=== PATIENT | male | born 1945 | race Caucasian/White ===

== ENCOUNTER → 2016-09-04 | Outpatient (CLI) | payer MEDICARE, BC, OTHER ==
--- NOTE | 2016-09-06 12:43 | SLEEPCENT ---
DATE OF PROCEDURE: 09/04/2016 ORDERED BY: Enriqueta Pedersen NP Diagnostic nocturnal polysomnography was performed due to concern for the obstructive sleep apnea syndrome. 7 hours and 4 minutes of data were reviewed. There were 268 minutes of sleep identified. Sleep latency was short at 21 minutes. Rapid eye movement (REM) was normal at 108 minutes. Sleep architecture showed fragmentation. Overall sleep efficiency 63.9%. The patient's EKG showed a sinus rhythm with an average heart rate of 58 beats per minute. EEG showed normal waveforms for awake and sleep. There were 170 respiratory events identified of 10 seconds in duration or greater for an apnea hypopnea index of 38. The events were primarily obstructive and having clearly established the presence of obstructive sleep apnea syndrome early in the night, testing was stopped shortly after 1 a.m. for the application of pressure therapy. The patient was fit with a ResMed Quattro full face mask of medium size. 4 cm of water pressure were applied to the circuit and the lights were extinguished. Throughout the remaining portion of the study pressure titration was performed. Best pressure for optimal sleep was 10 cm of water. Time at this pressure was somewhat limited, however. There was also significant limb activity identified with limb movement arousal index of 7.2. IMPRESSION: 1. Severe obstructive sleep apnea syndrome (G47.33). Apnea hypopnea index 38.1. 2. Mild periodic limb movement disorder (G47.61). Limb movement arousal index 7.2. RECOMMENDATION: Nightly use of pressure therapy at 10 cm of water is recommended as an initial intervention. Close clinical followup will be necessary and a full night re-titration may be beneficial if the patient's symptoms do not improve. Pending response to pressure therapy, interventions to reduce the frequency arousal from limb activity may also be helpful.
== END ==
LOC: M SLEEP 19:38
PROVIDERS: ATTEND Nurse Practitioner Adult Health
DX: G47.30 Sleep apnea, unspecified (principal)

== ENCOUNTER → 2017-12-19 | Outpatient (REF) | payer MEDICARE, OTHER ==
[2017-12-19 16:45] LABS: TESTOSTERONE 395 NG/DL (241-827)
== END ==
LOC: M LAB REF 13:54
DX: C61 Malignant neoplasm of prostate (principal)
CPT/HCPCS: 84403

== ENCOUNTER → 2018-07-30 | Outpatient (REF) | payer MEDICARE, OTHER | LOC: M LAB REF 12:27 | PROVIDERS: ATTEND Nurse Practitioner Adult Health | DX: C61 Malignant neoplasm of prostate (principal) ==

== ENCOUNTER → 2018-12-17 | Outpatient (REF) | payer MEDICARE, OTHER | LOC: M LAB REF 13:03 | PROVIDERS: ATTEND Nurse Practitioner Adult Health | DX: C61 Malignant neoplasm of prostate (principal) ==

== ENCOUNTER → 2019-07-31 | Outpatient (CLI) | payer MEDICARE, BC, OTHER ==
[2019-07-31 17:58] LABS: PROSTATIC SPECIFIC AG MONITOR 3.66 NG/ML (< 4.00)
== END ==
LOC: M LAB 16:51
PROVIDERS: ATTEND Urology
DX: C61 Malignant neoplasm of prostate (principal)

== ENCOUNTER → 2019-09-28 | Outpatient (CLI) | payer MEDICARE, BC, OTHER ==
[~2019-09-28] MED LIST: AMLO10TA5 PO; ASPI81TA85 PO; ATEN50TA2 PO; CHLO25TA PO; METF-877 PO; SIMV20TA22 PO; SPIR-10 PO; XARE20TA PO
== END ==
LOC: M LABSMTC 10:03
PROVIDERS: ATTEND Anesthesiology
DX: Z01.818 Encounter for other preprocedural examination (principal); Z03.818 Encounter for observation for suspected exposure to other biological agents ruled out
CPT/HCPCS: C9803; U0003

== ENCOUNTER 2019-10-01 09:47 | Day surgery (SDC) | payer MEDICARE, BC, OTHER ==
[~2019-10-01] VITALS: Ht 182.9 cm; Wt 94.3 kg
[~2019-10-01 09:47] MED LIST changes: -AMLO10TA5 PO; +AMLO1TAB25 PO; -ASPI81TA85 PO; +ASPI81TA86 PO; +NS 1,000 ML IV ONE
[2019-10-01] MEDS ORDERED: propofoL 200 MG/20 ML VIAL As Ordered ONE (11:03)
--- NOTE | 2019-10-01 11:15 | ROOR ---
Patient Name: Oliver Roca Procedure Date: 10/01/2019 10:50 AM Date of : 1945 Age: 74 Room: [facility] Gender: Male Note Status: Finalized Procedure: Colonoscopy Indications: High risk colon cancer surveillance: Personal history of colonic polyps Providers: Eliu Elizondo Jr, MD Referring MD: Estephanie Cueva NP Requesting Provider: Medicines: Propofol per Anesthesia Complications: No immediate complications. Procedure: Pre-Anesthesia Assessment: - Prior to the procedure, a History and Physical was performed, and patient medications and allergies were reviewed. The patient is competent. The risks and benefits of the procedure and the sedation options and risks were discussed with the patient. All questions were answered and informed consent was obtained. Patient identification and proposed procedure were verified by the physician and the nurse in the pre-procedure area and in the procedure room. Mental Status Examination: alert and oriented. Airway Examination: normal oropharyngeal airway and neck mobility. Respiratory Examination: clear to auscultation. CV Examination: normal. ASA Grade Assessment: II - A patient with mild systemic disease. After reviewing the risks and benefits, the patient was deemed in satisfactory condition to undergo the procedure. The anesthesia plan was to use moderate sedation / analgesia (conscious sedation). Immediately prior to administration of medications, the patient was re-assessed for adequacy to receive sedatives. The heart rate, respiratory rate, oxygen saturations, blood pressure, adequacy of pulmonary ventilation, and response to care were monitored throughout the procedure. The physical status of the patient was re-assessed after the procedure. The Colonoscope was introduced through the anus and advanced to the cecum, identified by appendiceal orifice and ileocecal valve. The colonoscopy was performed without difficulty. The patient tolerated the procedure well. The quality of the bowel preparation was good. Findings: The rectum, recto-sigmoid colon, descending colon, transverse colon, cecum, appendiceal orifice and ileocecal valve appeared normal. Multiple small and large-mouthed diverticula were found in the sigmoid colon. A medium polyp was found in the ascending colon. The polyp was semi-sessile. The polyp was removed with a hot snare. Resection and retrieval were complete. To prevent bleeding post-intervention, two hemostatic clips were successfully placed. There was no bleeding at the end of the procedure. Impression: - The rectum, recto-sigmoid colon, descending colon, transverse colon, cecum, appendiceal orifice and ileocecal valve are normal. - Diverticulosis in the sigmoid colon. - One medium polyp in the ascending colon, removed with a hot snare. Resected and retrieved. Clips were placed. Recommendation: - Repeat colonoscopy in 5 years for surveillance. Eliu Elizondo MD Eliu Elizondo Jr, MD 10/01/2019 11:15:00 AM Electronically signed by Eliu Elizondo Jr, MD Number of Addenda: 0 Note Initiated On: 10/01/2019 10:50 AM Estimated Blood Loss: Estimated blood loss: none.
[2019-10-01 11:30] VITALS: BP 147/63
== END 2019-10-01 11:44 | disposition home or self-care (01) ==
LOC: M OPP 09:47
PROVIDERS: ATTEND Surgery
DX: Z12.11 Encounter for screening for malignant neoplasm of colon (principal); Z86.010 Personal history of colon polyps; Z80.0 Family history of malignant neoplasm of digestive organs; K57.30 Diverticulosis of large intestine without perforation or abscess without bleeding; D12.2 Benign neoplasm of ascending colon; Z79.82 Long term (current) use of aspirin; Z79.84 Long term (current) use of oral hypoglycemic drugs; Z79.899 Other long term (current) drug therapy; Z86.711 Personal history of pulmonary embolism; Z85.46 Personal history of malignant neoplasm of prostate

== ENCOUNTER → 2019-12-08 | Outpatient (CLI) | payer MEDICARE, BC, OTHER ==
[~2019-12-08] MED LIST changes: -NS 1,000 ML IV ONE
[2019-12-13 04:09] LABS: PSA TOTAL 1.8 ng/mL (0.0-4.0)
== END ==
LOC: M LAB 12:40
PROVIDERS: ATTEND Urology
DX: R97.20 Elevated prostate specific antigen [PSA] (principal); C61 Malignant neoplasm of prostate

== ENCOUNTER → 2020-06-08 | Outpatient (CLI) | payer MEDICARE, BC, OTHER ==
[2020-06-08 11:42] LABS: CALCIUM LEVEL 9.3 MG/DL (8.8-10.2)
[2020-06-10 00:10] LABS: PSA % FREE 2.7 % (.); PSA FREE 0.15 ng/mL; PSA TOTAL 5.6 ng/mL (0.0-4.0)
== END ==
LOC: M LAB 10:31
PROVIDERS: ATTEND Urology
DX: C61 Malignant neoplasm of prostate (principal); C77.4 Secondary and unspecified malignant neoplasm of inguinal and lower limb lymph nodes; R31.29 Other microscopic hematuria

== ENCOUNTER → 2020-08-23 | Outpatient (CLI) | payer MEDICARE, BC, OTHER ==
[2020-08-23 13:13] LABS: BASO % 0.5 % (0.0-1.0); EOS # 0.1 10^3/uL (0.0-0.5); EOS % 1.9 % (0.0-3.0); HEMOGLOBIN 15.8 g/dl (13.5-17.5); LYMPH # 2.4 10^3/uL (1.5-5.0); LYMPH % 31.7 % (24.0-44.0); MEAN CORPUSCULAR HEMOGLOBIN 28.9 pg (27.0-33.0); MEAN CORPUSCULAR HGB CONC 32.2 g/dl (32.0-36.5); MEAN CORPUSCULAR VOLUME 89.6 fl (80.0-96.0); MONO # 0.5 10^3/uL (0.0-0.8); MONO % 6.5 % (2.0-8.0); NEUTROPHILS # 4.4 10^3/uL (1.5-8.5); PLATELET COUNT, AUTOMATED 179 10^3/uL (150-450); RED BLOOD COUNT 5.47 10^6/uL (4.30-6.10); WHITE BLOOD COUNT 7.5 10^3/uL (4.0-10.0)
[2020-08-23 13:23] LABS: BLOOD UREA NITROGEN 21 MG/DL (7-18); CALCIUM LEVEL 9.3 MG/DL (8.8-10.2); CARBON DIOXIDE LEVEL 29 MEQ/L (21-32); CHLORIDE LEVEL 108 MEQ/L (98-107); CREATININE FOR GFR 1.13 MG/DL (0.70-1.30); GLOMERULAR FILTRATION RATE > 60.0 (>42); GLUCOSE, FASTING 187 MG/DL (70-100); POTASSIUM SERUM 4.5 MEQ/L (3.5-5.1); SODIUM LEVEL 140 MEQ/L (136-145)
[2020-08-23 13:24] LABS: INR 1.15
[2020-08-23 13:25] LABS: PARTIAL THROMBOPLASTIN TIME 29.5 SECONDS (24.2-38.5)
== END ==
LOC: M LAB 12:27
PROVIDERS: ATTEND Physician Assistant
DX: Z01.818 Encounter for other preprocedural examination (principal); D69.8 Other specified hemorrhagic conditions

== ENCOUNTER → 2020-08-25 | Outpatient (CLI) | payer MEDICARE, BC, OTHER | LOC: M LABSMTC 10:00 | PROVIDERS: ATTEND Surgery Vascular Surgery | DX: Z20.822 Contact with and (suspected) exposure to COVID-19 (principal) ==

== ENCOUNTER → 2020-08-26 | Outpatient (CLI) | payer MEDICARE, BC, OTHER ==
[2020-08-27 20:07] LABS: PSA % FREE 2.7 % (.); PSA FREE 0.14 ng/mL; PSA TOTAL 5.2 ng/mL (0.0-4.0)
== END ==
LOC: M LAB 12:22
PROVIDERS: ATTEND Urology
DX: C61 Malignant neoplasm of prostate (principal)

== ENCOUNTER → 2020-09-27 | Outpatient (CLI) | payer MEDICARE, BC, OTHER ==
--- NOTE | 2020-09-27 13:51 | REP ---
INDICATION: SOLITARY PULMONARY NODULE COMPARISON: Multiple the latest 03/15/2020 TECHNIQUE: Standard helical technique without intravenous contrast administration. This causes exam limitations. FINDINGS: There is no mediastinal or hilar adenopathy. There are no pleural or pericardial effusions. Is no significant change in appearance of the imaged upper abdomen. Once again, there is a large left renal cyst partially imaged today and there is bilateral adrenal gland nodularity. There is no significant change in appearance of the imaged osseous structures. Evaluation of the lung rivas shows a pleural base nodule in the right lower lobe nancy basal segment which has increased in size now measuring 1 cm in its greatest dimension. There is a new 5 mm sized nodule in the right lung apex. There are other scattered lung field densities which are stable. There is mild cylindrical bronchiectasis which is unchanged. There is a calcified granuloma seen incidentally in the right middle lobe. IMPRESSION: 1. The right lower lobe pleural based nodule has increased in size as described above. Although the increase in size is minimal the irregularity of the nodule appears to have increased. According to the revised Fleischner society criteria this represents category 4B lesion for which PET-CT is recommended at this time. 2. Other findings as described above. <Electronically signed by Priyank Alves > 09/27/20 [id number]
== END ==
LOC: M RAD 08:51
PROVIDERS: ATTEND Nurse Practitioner Family
DX: R91.1 Solitary pulmonary nodule (principal)

== ENCOUNTER → 2020-10-18 | Outpatient (CLI) | payer MEDICARE, BC, OTHER ==
--- NOTE | 2020-10-18 16:42 | REP ---
INDICATION: DIAGNOSING LUNG NODULE 91.1. Prior history of prostate malignancy as well. COMPARISON: Comparison is made with outside prior PET images from 17 February 2019.. TECHNIQUE: Forty-six minutes following the intravenous injection of a 8.95 mCi dose of F-18 FDG, three-dimensional PET scintigraphy is acquired from the skull base to the proximal thighs. Triplanar noncontrast CT scanning is acquired through the same anatomic range for attenuation correction, and image registration with scan parameters optimized to minimize radiation exposure to the patient. PET scintigraphy and CT datasets were fused and displayed on a workstation with multiplanar and projection display capability. FINDINGS: Head and neck soft tissues are unremarkable. There is no abnormal hilar or mediastinal hypermetabolic focus. In the lung parenchyma, the previously noted area of pleural based somewhat nodular opacity appears less prominent today than it did on the recent CT scan of September 27, 2020. There is no discernible FDG accumulation within it. No abnormal pulmonary parenchymal hypermetabolic uptake is seen. In the abdomen and pelvis, normal hepatic, splenic, gastrointestinal, and genitourinary FDG accumulation is seen. No abnormal inguinal luci uptake is seen. No abnormal skeletal uptake. Incidental note is made of a large cyst in the left kidney a small cyst in the upper pole the right kidney and a stable benign left adrenal adenoma 2.1 cm in greatest diameter unchanged from prior imaging dated back to 2014. This shows slightly increased FDG uptake, maximum standard uptake value 3.59. IMPRESSION: Stable left adrenal adenoma showing minimal uptake unchanged since 2015. Otherwise negative PET scintigraphy. The pleural based right lower lobe nodular process is less prominent on the accompanying CT today than on the previous CT. Continued follow-up is advised. <Electronically signed by Miguel Angel Michael > 10/18/20 [id number]
== END ==
LOC: M PLARAD 10:13
PROVIDERS: ATTEND Nurse Practitioner Family
DX: R91.1 Solitary pulmonary nodule (principal); N28.1 Cyst of kidney, acquired; D35.02 Benign neoplasm of left adrenal gland
CPT/HCPCS: 78815; A9552

== ENCOUNTER → 2020-11-24 | Outpatient (CLI) | payer MEDICARE, BC, OTHER ==
[2020-11-24 17:21] LABS: PROSTATIC SPECIFIC AG MONITOR 4.14 NG/ML (< 4.00)
== END ==
LOC: M LAB 15:54
PROVIDERS: ATTEND Urology
DX: C61 Malignant neoplasm of prostate (principal)

== ENCOUNTER 2020-12-04 11:04 | Emergency (ER) | payer MEDICARE, BC, OTHER ==
[~2020-12-04] VITALS: Ht 182.9 cm; Wt 93.2 kg
[2020-12-04] MEDS ORDERED: MORPHINE 2 MG/ML 1ML VIAL (J2270) IV ONE ×2 (12:45→15:45)
[2020-12-04] MEDS ORDERED: ONDANSETRON 4MG/2ML VIAL IV PRN (12:45)
[2020-12-04] MEDS ORDERED: ONDANSETRON 4MG/2ML VIAL IV ONE (12:50)
--- NOTE | 2020-12-04 13:02 | REP ---
INDICATION: R knee pain/redness/swelling COMPARISON: None. TECHNIQUE: AP, lateral, bilateral oblique views of the right knee. FINDINGS: Moderate age-related degenerative changes are appreciated. Oblique and lateral views demonstrate heterotopic calcification along the anterior superior margin of the patella along with significant anterior/prepatellar soft tissue swelling and suspected suprapatellar effusion. IMPRESSION: Swelling and changes primarily involving the anterior knee and patella should be correlated with prior injury. Moderate underlying tricompartmental arthritic changes are also noted. <Electronically signed by Florentin Diane > 12/04/20 [id number]
[2020-12-04 13:20] LABS: BASO % 0.4 % (0.0-1.0); EOS # 0.1 10^3/uL (0.0-0.5); EOS % 1.2 % (0.0-3.0); HEMATOCRIT 48.2 % (42.0-52.0); HEMOGLOBIN 15.7 g/dl (13.5-17.5); LYMPH # 2.1 10^3/uL (1.5-5.0); LYMPH % 23.2 % (24.0-44.0); MEAN CORPUSCULAR HEMOGLOBIN 28.8 pg (27.0-33.0); MEAN CORPUSCULAR HGB CONC 32.6 g/dl (32.0-36.5); MEAN CORPUSCULAR VOLUME 88.3 fl (80.0-96.0); MONO # 0.5 10^3/uL (0.0-0.8); MONO % 5.7 % (2.0-8.0); NEUTROPHILS # 6.2 10^3/uL (1.5-8.5); NEUTROPHILS % 69.1 % (36.0-66.0); PLATELET COUNT, AUTOMATED 203 10^3/uL (150-450); RED BLOOD COUNT 5.46 10^6/uL (4.30-6.10)
[2020-12-04 13:30] LABS: INR 1.22; PROTHROMBIN TIME 15.8 SECONDS (12.7-14.5)
[2020-12-04 13:31] LABS: PARTIAL THROMBOPLASTIN TIME 35.2 SECONDS (25.9-37.0)
[2020-12-04 13:36] LABS: BLOOD UREA NITROGEN 16 MG/DL (7-18); CALCIUM LEVEL 8.5 MG/DL (8.8-10.2); CARBON DIOXIDE LEVEL 26 MEQ/L (21-32); CHLORIDE LEVEL 109 MEQ/L (98-107); CREATININE FOR GFR 1.22 MG/DL (0.70-1.30); GLOMERULAR FILTRATION RATE > 60.0 (>42); GLUCOSE, FASTING 144 MG/DL (70-100); POTASSIUM SERUM 4.1 MEQ/L (3.5-5.1); SODIUM LEVEL 139 MEQ/L (136-145)
[2020-12-04 13:38] LABS: ERYTHROCYTE SEDIMENTATION RATE 42 mm/hr (0-20)
--- NOTE | 2020-12-04 13:39 | REP ---
INDICATION: r/o dvt rle COMPARISON: None. TECHNIQUE: Hoffman scale and color Doppler evaluation using linear high frequency transducer. FINDINGS: Ultrasound examination of the right lower extremity deep venous structures from the common femoral vein through the calf/ankle to include the peroneal, and tibial veins demonstrates normal compressibility flow and wave patterns in response to respiration and augmentation. There is no evidence for deep venous thrombosis. Contralateral CFV is patent and normal. IMPRESSION: No evidence for deep venous thrombosis. <Electronically signed by Florentin Diane > 12/04/20 [id number]
[2020-12-04 14:07] LABS: URIC ACID 3.7 MG/DL (3.5-7.2)
[2020-12-04 14:47] LABS: SOURCE, BODY FLUID RT KNEE; SYNOVIAL FLUID COLOR YELLOW (COLORLESS)
[2020-12-04 15:04] LABS: SOURCE, BODY FLUID CRYSTALS RT KNEE
[2020-12-04 15:05] LABS: CRYSTALS, BODY FLUID NONE SEEN (NONE SEEN)
[2020-12-04] MEDS ORDERED: CEPH500C PO (18:45)
[2020-12-04] MEDS ORDERED: HYDR-3713 PO (18:45)
[2020-12-04] MEDS ORDERED: CEPHALEXIN 500 MG CAP PO ONE (18:50)
[2020-12-04] MEDS ORDERED: NORCO 5/325MG TABLET (BULK FOR ED) PO ONE (18:50)
[2020-12-04 19:38] VITALS: BP 130/77
--- NOTE | 2020-12-04 21:08 | ER ---
ER CONSULTATION DATE: 12/04/2020 TIME: 3 pm CONSULTED SERVICE: Orthopaedic surgery. CONSULTED PHYSICIAN: Luis Oneil MD HISTORY OF PRESENT ILLNESS: This is a 75-year-old male with right knee pain, suspected diagnosis of right knee cellulitis. Orthopaedic surgery was consulted to rule out a right septic knee and right gout. Patient has had pain with range of motion of the right knee with minimal axial loading pain for several days which has been exacerbated in the last 48 hours. He presented to [facility] for further evaluation and treatment. Orthopaedic surgery was consulted for the aforementioned injury. PAST MEDICAL HISTORY: Diabetes, hypertension. PAST SURGICAL HISTORY: Stenting of the femoral artery. ALLERGIES: Denies. MEDICATIONS: - metformin - atenolol - amlodipine - losartan - clopidogrel - allopurinol A more extensive list exists in the hospitalist records. SOCIAL HISTORY: Nondrinker, nonsmoker, non-IV drug user. REVIEW OF SYSTEMS: 14-point review of systems was negative unless as otherwise described in the history of present illness (HPI) above. PHYSICAL EXAMINATION: Alert and oriented to person, time, and place. Patient's right knee had a very mild hue, possible cellulitis in presentation. This is not obvious, however the patient did have a very mild knee effusion appreciated on exam. Patient had tenderness to palpation about the suprapatellar region. He was otherwise neurovascularly intact to the right lower extremity. He had 5/5 motor strength to the extensor hallucis longus (EHL), flexor hallucis longus (FHL), tibialis anterior, peroneal, and gastrocnemius musculature. Sensation intact to light touch to the deep and superficial peroneal, sural, saphenous, and tibial nerve distributions. 2+ dorsalis pedis and posterior tibial arterial pulse. Under 2 seconds capillary refill to the digits. Right knee radiographs demonstrate mild osteoarthritic changes with osteophytic lipping of the medial, lateral, and patellofemoral compartments. His joint space was restored and there were minimal radiographic evidence of subchondral cysts. LABORATORIES: White blood cell count was 9.0, ESR was 42. He had a knee aspiration which yielded 184 white blood cell count which is low. Crystals were not appreciated. Pending aerobic and anaerobic cultures. IMPRESSION: 75-year-old male with a mild suprapatellar bursitis versus osteoarthritic flare. Septic knee was ruled out and gout was ruled out. PLAN: At this point in time, given the patient's low synovial white blood cell count and the absence of crystals we can confidently rule out a septic knee or a gout flare of the right knee. He likely has either a very mild cellulitis surrounding the knee or possibly a flare of osteoarthritis. I recommend the patient receive by mouth antibiotics per the emergency room (ER) physician's recommendations for cellulitis. I recommend the patient follows up in 5-7 days for a followup check. If the patient still endorses right knee pain, I would recommend either an admission for cellulitis management versus a rheumatology consult to evaluate further rheumatologic issues regarding his right knee. I would residential substance abuse counselor the patient on return precautions for a right septic knee to include pain with ambulation and load bearing, as well as fevers and chills. Thank you for this interesting consult.
== END 2020-12-04 19:40 | disposition home or self-care (01) ==
LOC: M ED 11:04
DX: M25.561 Pain in right knee (principal); R22.41 Localized swelling, mass and lump, right lower limb; M17.11 Unilateral primary osteoarthritis, right knee; E11.9 Type 2 diabetes mellitus without complications; I10 Essential (primary) hypertension; E78.5 Hyperlipidemia, unspecified; M10.9 Gout, unspecified; Z86.718 Personal history of other venous thrombosis and embolism; Z85.46 Personal history of malignant neoplasm of prostate; Z87.891 Personal history of nicotine dependence; Z79.899 Other long term (current) drug therapy
CPT/HCPCS: 73564; 80048; 84550; 85025; 85610; 85652; 85730; 86140; 87040; 87070; 87075; 87205; 89051; 89060; 93971; 96374; 96375; 96376; 99284; J2270; J2405

== ENCOUNTER → 2020-12-28 | Outpatient (REF) | payer MEDICARE, BC, OTHER ==
[~2020-12-28] MED LIST changes: +CEPH500C PO; +HYDR-3713 PO
== END ==
LOC: M LAB REF 11:15
PROVIDERS: ATTEND Nurse Practitioner Adult Health
DX: M10.9 Gout, unspecified (principal)

== ENCOUNTER → 2021-01-30 | Outpatient (REF) | payer MEDICARE, BC, OTHER | LOC: M LAB REF 16:28 | PROVIDERS: ATTEND Nurse Practitioner Adult Health | DX: M10.9 Gout, unspecified (principal) ==

== ENCOUNTER → 2021-04-10 | Outpatient (CLI) | payer MEDICARE, BC, OTHER ==
--- NOTE | 2021-04-19 08:29 | REP ---
INDICATION: DONAVAN PULM NODULE PLEASE COMPARE TO PRIORS AT [facility] COMPARISON: 09/27/2020 TECHNIQUE: Axial noncontrast images from the thoracic inlet to the upper abdomen with coronal and sagittal reformations. This CT examination was performed using the following dose reduction techniques: Automated exposure control, adjustment of mA and/or kv according to the patient's size, and use of iterative reconstruction technique. FINDINGS: The suspicious pleural based irregularity along the anterolateral aspect of the right lower lobe appears relatively unchanged compared with prior examinations and the most recent PET-CT dated 10/18/2020 was negative for hyperactivity. The bilateral lung rivas otherwise are well aerated and demonstrate scattered chronic interstitial and emphysematous changes. There is no new acute consolidation, suspicious nodule or mass. There is no effusion or pneumothorax. The tracheobronchial tree is patent. Mediastinum demonstrates stable atherosclerotic changes to the thoracic aorta and coronary arteries without aortic aneurysm. No cardiomegaly. No pericardial effusion. No significant mediastinal or hilar adenopathy is identified. Surrounding musculoskeletal structures are unchanged. Limited upper abdomen demonstrates stable large left renal cyst and known adrenal adenomas. IMPRESSION: 1. No significant change in appearance to the pleural based density in the right lower lobe. This was negative on accompanying PET-CT dated 10/18/2020 and likely represents area of scarring. 2. No acute mediastinal or pleuroparenchymal process appreciated. <Electronically signed by Florentin Diane > 04/19/21 [id number]
== END ==
LOC: M RAD 09:41
PROVIDERS: ATTEND Nurse Practitioner Family
DX: R91.1 Solitary pulmonary nodule (principal)

== ENCOUNTER → 2021-07-31 | Outpatient (CLI) | payer MEDICARE, BC, OTHER ==
[2021-07-31 11:19] LABS: PROSTATIC SPECIFIC AG MONITOR 7.32 NG/ML (< 4.00)
== END ==
LOC: M LAB 09:11
PROVIDERS: ATTEND Urology
DX: C61 Malignant neoplasm of prostate (principal)

== ENCOUNTER → 2021-11-15 | Outpatient (CLI) | payer MEDICARE, BC, OTHER | LOC: M RAD 08:54 | PROVIDERS: ATTEND Internal Medicine Pulmonary Disease | DX: R91.1 Solitary pulmonary nodule (principal); N28.1 Cyst of kidney, acquired; R91.8 Other nonspecific abnormal finding of lung field ==

== ENCOUNTER 2022-02-12 12:16 | Emergency (ER) | payer MEDICARE, BC, OTHER ==
[~2022-02-12] VITALS: Ht 182.9 cm; Wt 97.4 kg
[2022-02-12] MEDS ORDERED: OXYC-1 PO ×2 (16:44→16:48)
[2022-02-12] MEDS ORDERED: LIDO5DIS41 TOP (16:44)
[2022-02-12] MEDS ORDERED: HYDR-3713 PO (16:57)
[2022-02-12 17:19] VITALS: BP 161/82
== END 2022-02-12 17:20 | disposition home or self-care (01) ==
LOC: M ED 12:16
DX: S20.211A Contusion of right front wall of thorax, initial encounter (principal); W01.0XXA Fall on same level from slipping, tripping and stumbling without subsequent striking against object, initial encounter; J98.11 Atelectasis; E11.9 Type 2 diabetes mellitus without complications; I10 Essential (primary) hypertension; E78.5 Hyperlipidemia, unspecified; Z86.711 Personal history of pulmonary embolism; Z79.82 Long term (current) use of aspirin; Z79.84 Long term (current) use of oral hypoglycemic drugs; Z79.899 Other long term (current) drug therapy

== ENCOUNTER → 2022-02-23 | Outpatient (REF) | payer MEDICARE, BC, OTHER ==
[~2022-02-23] MED LIST changes: +LIDO5DIS41 TOP; +OXYC-1 PO
== END ==
LOC: M LAB REF 12:00
PROVIDERS: ATTEND Nurse Practitioner Adult Health
DX: M10.9 Gout, unspecified (principal)

== ENCOUNTER → 2022-02-26 | Outpatient (CLI) | payer MEDICARE, BC, OTHER ==
[2022-02-26 14:04] LABS: PROSTATIC SPECIFIC AG MONITOR 8.65 NG/ML (< 4.00)
== END ==
LOC: M LAB 11:56
PROVIDERS: ATTEND Urology
DX: C61 Malignant neoplasm of prostate (principal)

== ENCOUNTER → 2022-03-20 | Outpatient (CLI) | payer MEDICARE, BC, OTHER | LOC: M RAD 11:10 | PROVIDERS: ATTEND Physician Assistant Medical | DX: R06.02 Shortness of breath (principal); R05.9 Cough, unspecified; R91.8 Other nonspecific abnormal finding of lung field ==

== ENCOUNTER → 2022-07-24 | Outpatient (CLI) | payer MEDICARE, BC, OTHER ==
[2022-07-24 07:44] LABS: PROSTATIC SPECIFIC AG MONITOR 5.93 NG/ML (< 4.00)
[2022-07-24 07:46] LABS: ALBUMIN 3.3 G/DL (3.2-5.2); BILIRUBIN,TOTAL 0.3 MG/DL (0.3-1.2); CALCIUM LEVEL 9.1 MG/DL (8.3-10.6); CREATININE FOR GFR 1.29 MG/DL (0.70-1.30); GLOMERULAR FILTRATION RATE 57.3 (>42); POTASSIUM SERUM 4.2 MMOL/L (3.5-5.1); TOTAL PROTEIN 6.6 G/DL (5.7-8.2)
== END ==
LOC: M LAB 07-23 16:15
PROVIDERS: ATTEND Urology
DX: C61 Malignant neoplasm of prostate (principal)

== ENCOUNTER → 2022-07-30 | Outpatient (CLI) | payer MEDICARE, BC, OTHER | LOC: M PLAIMG 12:18 | PROVIDERS: ATTEND Internal Medicine Pulmonary Disease | DX: R91.8 Other nonspecific abnormal finding of lung field (principal); I70.0 Atherosclerosis of aorta; I25.10 Atherosclerotic heart disease of native coronary artery without angina pectoris; J47.9 Bronchiectasis, uncomplicated; J43.9 Emphysema, unspecified ==

== ENCOUNTER → 2023-01-16 | Outpatient (CLI) | payer MEDICARE, BC, OTHER ==
[2023-01-16 12:38] LABS: CREATININE FOR GFR 1.27 MG/DL (0.70-1.30); GLOMERULAR FILTRATION RATE 58.4 (>42)
== END ==
LOC: M LAB 11:23
DX: I70.201 Unspecified atherosclerosis of native arteries of extremities, right leg (principal)

== ENCOUNTER → 2023-01-23 | Outpatient (CLI) | payer MEDICARE, BC, OTHER ==
[~2023-01-23] MED LIST changes: +ISOVUE-370 76% 100ML VIAL As Ordered ONE
== END ==
LOC: M RAD 09:55
PROVIDERS: ATTEND Surgery Vascular Surgery
DX: I70.203 Unspecified atherosclerosis of native arteries of extremities, bilateral legs (principal); Z95.820 Peripheral vascular angioplasty status with implants and grafts; N28.1 Cyst of kidney, acquired; I70.0 Atherosclerosis of aorta
CPT/HCPCS: 75635; Q9967

== ENCOUNTER → 2023-01-23 | Outpatient (CLI) | payer MEDICARE, BC, OTHER ==
[~2023-01-23] MED LIST changes: -ISOVUE-370 76% 100ML VIAL As Ordered ONE
== END ==
LOC: M LAB 10:00
PROVIDERS: ATTEND Urology
DX: C61 Malignant neoplasm of prostate (principal)

== ENCOUNTER → 2023-08-09 | Outpatient (CLI) | payer MEDICARE, BC ==
[2023-08-09 08:07] LABS: PROSTATIC SPECIFIC AG MONITOR 8.04 NG/ML (< 4.00)
== END ==
LOC: M LAB 07:08
PROVIDERS: ATTEND Urology
DX: C61 Malignant neoplasm of prostate (principal)

== ENCOUNTER → 2023-08-26 | Outpatient (CLI) | payer MEDICARE, BC | LOC: M PLAIMG 07:47 | PROVIDERS: ATTEND Internal Medicine Pulmonary Disease | DX: R91.1 Solitary pulmonary nodule (principal); J84.10 Pulmonary fibrosis, unspecified; R91.8 Other nonspecific abnormal finding of lung field ==

== ENCOUNTER → 2023-12-06 | Outpatient (CLI) | payer MEDICARE, BC ==
[2023-12-06 08:22] LABS: PROSTATIC SPECIFIC AG MONITOR 8.36 NG/ML (< 4.00)
== END ==
LOC: M LAB 07:19
PROVIDERS: ATTEND Urology
DX: C61 Malignant neoplasm of prostate (principal)

== ENCOUNTER → 2023-12-10 | Outpatient (REF) | payer MEDICARE, OTHER | LOC: M SFHCDERM 12:36 | PROVIDERS: ATTEND Nurse Practitioner Family | DX: L82.0 Inflamed seborrheic keratosis (principal) ==

== ENCOUNTER → 2024-02-28 | Outpatient (CLI) | payer MEDICARE, BC | LOC: M RAD 09:48 | PROVIDERS: ATTEND Internal Medicine Pulmonary Disease | DX: R91.8 Other nonspecific abnormal finding of lung field (principal); I25.10 Atherosclerotic heart disease of native coronary artery without angina pectoris; J98.11 Atelectasis; J84.10 Pulmonary fibrosis, unspecified ==

== ENCOUNTER 2024-06-17 13:15 | Emergency (ER) | payer MEDICARE, BC ==
[~2024-06-17] VITALS: Ht 180.3 cm; Wt 94.7 kg
[2024-06-17 14:52] LABS: HEMATOCRIT 26.9 % (42.0-52.0); HEMOGLOBIN 8.4 g/dl (13.5-17.5); MEAN CORPUSCULAR HEMOGLOBIN 30.1 pg (27.0-33.0); MEAN CORPUSCULAR HGB CONC 31.2 g/dl (32.0-36.5); MEAN CORPUSCULAR VOLUME 96.4 fl (80.0-96.0); RED BLOOD COUNT 2.79 10^6/uL (4.30-6.10); WHITE BLOOD COUNT 6.5 10^3/uL (4.0-10.0)
[2024-06-17 15:20] LABS: ALBUMIN 2.6 G/DL (3.2-5.2); BILIRUBIN,DIRECT 0.4 MG/DL (<0.4); BILIRUBIN,TOTAL 1.4 MG/DL (0.3-1.2); CALCIUM LEVEL 8.2 MG/DL (8.3-10.6); CREATININE FOR GFR 1.83 MG/DL (0.70-1.30); GLOMERULAR FILTRATION RATE 38.1 (>35); POTASSIUM SERUM 4.3 MMOL/L (3.5-5.1); TOTAL PROTEIN 6.3 G/DL (5.7-8.2)
[2024-06-17 15:23] LABS: PLATELET COUNT, AUTOMATED 52 10^3/uL (150-450)
[2024-06-17 15:26] LABS: ATYPICAL LYMPH 4 % (0-5); EOSINOPHILS 1 % (0-3); LYMPHOCYTES 21 % (16-44); MONOCYTES 4 % (0-5); NEUTROPHILS 69 % (28-66); PLATELET ESTIMATE DECREASED (NORMAL)
[2024-06-17 15:27] LABS: ANISOCYTOSIS 2+; STOMATOCYTES 1+
[2024-06-17 15:28] LABS: POLYCHROMASIA 1+
[2024-06-17 15:29] LABS: MICROCYTOSIS 3+
[2024-06-17 21:01] VITALS: BP 119/56; TEMP 97.8; O2SAT 99
[2024-06-17 21:15] VITALS: BP 129/73; TEMP 97.3; O2SAT 97
[2024-06-17 22:00] VITALS: BP 148/67; TEMP 97.2; O2SAT 96
[2024-06-17 23:00] VITALS: BP 152/67; TEMP 97.8; O2SAT 98
[2024-06-17 23:02] VITALS: BP 132/64; TEMP 97.8; O2SAT 98
== END 2024-06-17 23:09 | disposition home or self-care (01) ==
LOC: M ED 13:15
DX: D64.9 Anemia, unspecified (principal); R53.83 Other fatigue; R06.00 Dyspnea, unspecified; I10 Essential (primary) hypertension; E78.5 Hyperlipidemia, unspecified; E11.9 Type 2 diabetes mellitus without complications; Z85.46 Personal history of malignant neoplasm of prostate; Z86.711 Personal history of pulmonary embolism; Z79.01 Long term (current) use of anticoagulants; Z79.899 Other long term (current) drug therapy
CPT/HCPCS: 36430; 71045; 80048; 80076; 85025; 85049; 85055; 86850; 86900; 86901; 86920; 87486; 87581; 87633; 87798; 93005; 99285; P9016

== ENCOUNTER → 2024-06-22 | Outpatient (CLI) | payer MEDICARE, BC ==
[2024-06-22 12:45] LABS: BASO % 0.2 % (0.0-1.0); EOS % 0.5 % (0.0-3.0); HEMATOCRIT 29.6 % (42.0-52.0); LYMPH # 2.6 10^3/uL (1.5-5.0); LYMPH % 30.8 % (24.0-44.0); MEAN CORPUSCULAR HEMOGLOBIN 29.8 pg (27.0-33.0); MEAN CORPUSCULAR HGB CONC 30.4 g/dl (32.0-36.5); MONO # 0.6 10^3/uL (0.0-0.8); MONO % 7.4 % (2.0-8.0); NEUTROPHILS # 5.1 10^3/uL (1.5-8.5); NEUTROPHILS % 60.6 % (36.0-66.0); PLATELET COUNT, AUTOMATED 51 10^3/uL (150-450); RED BLOOD COUNT 3.02 10^6/uL (4.30-6.10); WHITE BLOOD COUNT 8.4 10^3/uL (4.0-10.0)
[2024-06-22 13:12] LABS: LDH LACTATE DEHYDROGENASE 217 U/L (120-246)
[2024-06-22 13:13] LABS: ALBUMIN 2.7 G/DL (3.2-5.2); ALKALINE PHOSPHATASE 66 U/L (40-129); ALT/SGPT < 9 U/L (7.0-40); AST/SGOT < 8 U/L (<34); BILIRUBIN,TOTAL 1.2 MG/DL (0.3-1.2); BLOOD UREA NITROGEN 57 MG/DL (9-23); CALCIUM LEVEL 8.6 MG/DL (8.3-10.6); CARBON DIOXIDE LEVEL 20 MMOL/L (20-31); CHLORIDE LEVEL 115 MMOL/L (98-107); CREATININE FOR GFR 1.65 MG/DL (0.70-1.30); GLOMERULAR FILTRATION RATE 42.9 (>35); GLUCOSE, FASTING 161 MG/DL (74-106); POTASSIUM SERUM 4.7 MMOL/L (3.5-5.1); SODIUM LEVEL 143 MMOL/L (136-145); TOTAL PROTEIN 6.3 G/DL (5.7-8.2)
== END ==
LOC: M LAB 12:11
PROVIDERS: ATTEND Physician Assistant
DX: C83.30 Diffuse large B-cell lymphoma, unspecified site (principal)

== ENCOUNTER → 2024-06-25 | Outpatient (CLI) | payer MEDICARE, BC ==
[~2024-06-25] MED LIST changes: +ADVA1AER9 INH; +ASPI81TA26 PO; +INDA1.253 PO; +METF500T13 PO
[2024-06-25 13:02] LABS: EOS % 0.1 % (0.0-3.0); HEMATOCRIT 25.9 % (42.0-52.0); HEMOGLOBIN 8.2 g/dl (13.5-17.5); LYMPH # 0.8 10^3/uL (1.5-5.0); LYMPH % 11.7 % (24.0-44.0); MEAN CORPUSCULAR HEMOGLOBIN 31.3 pg (27.0-33.0); MEAN CORPUSCULAR HGB CONC 31.7 g/dl (32.0-36.5); MEAN CORPUSCULAR VOLUME 98.9 fl (80.0-96.0); MONO # 0.4 10^3/uL (0.0-0.8); MONO % 5.5 % (2.0-8.0); NEUTROPHILS # 5.5 10^3/uL (1.5-8.5); NEUTROPHILS % 82.1 % (36.0-66.0); RED BLOOD COUNT 2.62 10^6/uL (4.30-6.10); WHITE BLOOD COUNT 6.7 10^3/uL (4.0-10.0)
[2024-06-25 13:04] LABS: PLATELET COUNT, AUTOMATED 46 10^3/uL (150-450)
[2024-06-25 13:22] LABS: URIC ACID 10.6 MG/DL (3.7-9.2)
[2024-06-25 13:25] LABS: ALBUMIN 2.5 G/DL (3.2-5.2); BILIRUBIN,TOTAL 1.1 MG/DL (0.3-1.2); CALCIUM LEVEL 8.4 MG/DL (8.3-10.6); CREATININE FOR GFR 1.68 MG/DL (0.70-1.30); GLOMERULAR FILTRATION RATE 42.1 (>35); PHOSPHORUS LEVEL 6.5 MG/DL (2.4-5.1); POTASSIUM SERUM 5.7 MMOL/L (3.5-5.1)
== END ==
LOC: M LAB 12:11
PROVIDERS: ATTEND Physician Assistant
DX: C83.30 Diffuse large B-cell lymphoma, unspecified site (principal)

== ENCOUNTER → 2024-06-26 | Outpatient (CLI) | payer MEDICARE, BC ==
[~2024-06-26] MED LIST changes: -ADVA1AER9 INH; -ASPI81TA26 PO; -INDA1.253 PO; -METF500T13 PO
[2024-06-26 12:35] LABS: BASO % 0.1 % (0.0-1.0); EOS % 0.3 % (0.0-3.0); HEMATOCRIT 25.9 % (42.0-52.0); HEMOGLOBIN 8.1 g/dl (13.5-17.5); LYMPH # 0.8 10^3/uL (1.5-5.0); LYMPH % 6.5 % (24.0-44.0); MEAN CORPUSCULAR HEMOGLOBIN 31.2 pg (27.0-33.0); MEAN CORPUSCULAR HGB CONC 31.3 g/dl (32.0-36.5); MEAN CORPUSCULAR VOLUME 99.6 fl (80.0-96.0); MONO # 0.4 10^3/uL (0.0-0.8); MONO % 3.1 % (2.0-8.0); NEUTROPHILS # 10.3 10^3/uL (1.5-8.5); NEUTROPHILS % 85.2 % (36.0-66.0); WHITE BLOOD COUNT 12.1 10^3/uL (4.0-10.0)
[2024-06-26 12:37] LABS: PLATELET COUNT, AUTOMATED 46 10^3/uL (150-450)
[2024-06-26 12:46] LABS: URIC ACID 10.5 MG/DL (3.7-9.2)
[2024-06-26 12:52] LABS: ALBUMIN 2.5 G/DL (3.2-5.2); BILIRUBIN,TOTAL 1.1 MG/DL (0.3-1.2); CALCIUM LEVEL 8.2 MG/DL (8.3-10.6); CREATININE FOR GFR 1.66 MG/DL (0.70-1.30); GLOMERULAR FILTRATION RATE 42.6 (>35); PHOSPHORUS LEVEL 5.6 MG/DL (2.4-5.1); POTASSIUM SERUM 4.5 MMOL/L (3.5-5.1); TOTAL PROTEIN 5.8 G/DL (5.7-8.2)
== END ==
LOC: M LAB 11:49
PROVIDERS: ATTEND Physician Assistant
DX: C83.30 Diffuse large B-cell lymphoma, unspecified site (principal)

== ENCOUNTER → 2024-07-02 | Outpatient (CLI) | payer MEDICARE, BC ==
[~2024-07-02] MED LIST changes: +ADVA1AER9 INH; +ASPI81TA26 PO; +INDA1.253 PO; +METF500T13 PO
[2024-07-02 15:32] LABS: BASO % 0.5 % (0.0-1.0); EOS # 0.1 10^3/uL (0.0-0.5); EOS % 6.7 % (0.0-3.0); HEMATOCRIT 21.7 % (42.0-52.0); HEMOGLOBIN 7.2 g/dl (13.5-17.5); LYMPH # 0.9 10^3/uL (1.5-5.0); LYMPH % 46.9 % (24.0-44.0); MEAN CORPUSCULAR HGB CONC 33.2 g/dl (32.0-36.5); MEAN CORPUSCULAR VOLUME 96.4 fl (80.0-96.0); MONO # 0.1 10^3/uL (0.0-0.8); MONO % 7.2 % (2.0-8.0); NEUTROPHILS % 38.2 % (36.0-66.0); RED BLOOD COUNT 2.25 10^6/uL (4.30-6.10); WHITE BLOOD COUNT 1.9 10^3/uL (4.0-10.0)
[2024-07-02 15:35] LABS: NEUTROPHILS # 0.7 10^3/uL (1.5-8.5); PLATELET COUNT, AUTOMATED 75 10^3/uL (150-450)
[2024-07-02 15:53] LABS: URIC ACID 7.4 MG/DL (3.7-9.2)
[2024-07-02 15:56] LABS: ALBUMIN 2.6 G/DL (3.2-5.2); BILIRUBIN,TOTAL 1.2 MG/DL (0.3-1.2); CALCIUM LEVEL 8.1 MG/DL (8.3-10.6); CREATININE FOR GFR 1.36 MG/DL (0.70-1.30); GLOMERULAR FILTRATION RATE 53.7 (>35); PHOSPHORUS LEVEL 1.8 MG/DL (2.4-5.1); POTASSIUM SERUM 4.6 MMOL/L (3.5-5.1); TOTAL PROTEIN 5.8 G/DL (5.7-8.2)
== END ==
LOC: M LAB 12:05
PROVIDERS: ATTEND Physician Assistant
DX: C83.30 Diffuse large B-cell lymphoma, unspecified site (principal)

== ENCOUNTER 2024-07-03 11:08 | Observation (INO) | payer MEDICARE, BC ==
[2024-07-03] VITALS (9 sets, daily range): BP systolic 110–139; BP diastolic 51–60; TEMP 98.7–99.6; O2SAT 98–100
[~2024-07-03] VITALS: Ht 180.3 cm; Wt 86.4 kg
[2024-07-03] MEDS: DOCUSATE SODIUM 100MG CAPSULE PO SCH (09:00)
[~2024-07-03 11:08] MED LIST changes: -ADVA1AER9 INH; -ASPI81TA26 PO; -INDA1.253 PO; -METF500T13 PO
[2024-07-03 12:22] LABS: MEAN CORPUSCULAR HEMOGLOBIN 32.1 pg (27.0-33.0); MEAN CORPUSCULAR HGB CONC 33.8 g/dl (32.0-36.5); MEAN CORPUSCULAR VOLUME 94.8 fl (80.0-96.0); RED BLOOD COUNT 2.12 10^6/uL (4.30-6.10); WHITE BLOOD COUNT 3.1 10^3/uL (4.0-10.0)
[2024-07-03 12:25] LABS: HEMATOCRIT 20.1 % (42.0-52.0); HEMOGLOBIN 6.8 g/dl (13.5-17.5); PLATELET COUNT, AUTOMATED 95 10^3/uL (150-450)
[2024-07-03 12:50] LABS: CALCIUM LEVEL 7.7 MG/DL (8.3-10.6); CREATININE FOR GFR 1.38 MG/DL (0.70-1.30); GLOMERULAR FILTRATION RATE 52.8 (>35); POTASSIUM SERUM 3.4 MMOL/L (3.5-5.1)
[2024-07-03 12:59] LABS: BASOPHILS 1 % (0-1); EOSINOPHILS 6 % (0-3); LYMPHOCYTES 39 % (16-44); MONOCYTES 1 % (0-5); NEUTROPHILS 40 % (28-66)
[2024-07-03 13:00] LABS: PLATELET ESTIMATE MARKED DECREASE (NORMAL)
[2024-07-03 13:02] LABS: ANISOCYTOSIS 2+; MICROCYTOSIS 1+
[2024-07-03 13:03] LABS: POLYCHROMASIA 1+
[2024-07-03] MEDS ORDERED: ACETAMINOPHEN 325 MG TAB PO PRN (13:25)
[2024-07-03] MEDS ORDERED: MOM 30ML SUSPENSION UDC PO PRN (13:25)
[2024-07-03] MEDS ORDERED: GLUCAGON INJ 1MG VIAL SC PRN (14:30)
[2024-07-03] MEDS ORDERED: DEXTROSE 50% 50ML SYRINGE IV PRN (14:30)
[2024-07-03] MEDS ORDERED: GLUCOSE 4 GM CHEW PO PRN (14:30)
[2024-07-03] MEDS ORDERED: ASPI81TA26 PO (14:52)
[2024-07-03] MEDS ORDERED: METF500T13 PO (14:52)
[2024-07-03] MEDS ORDERED: INDA1.253 PO (14:54)
[2024-07-03] MEDS ORDERED: ADVA1AER9 INH (14:54)
[2024-07-03] MEDS ORDERED: HOME MED LIST COMPLETE! XX SCH (14:55)
[2024-07-03 15:04] LABS: EOS # 0.1 10^3/uL (0.0-0.5); EOS % 4.5 % (0.0-3.0); LYMPH # 0.7 10^3/uL (1.5-5.0); LYMPH % 23.4 % (24.0-44.0); MONO # 0.3 10^3/uL (0.0-0.8); NEUTROPHILS # 1.7 10^3/uL (1.5-8.5); NEUTROPHILS % 53.2 % (36.0-66.0)
[2024-07-03] MEDS: INSULIN LISPRO (NovoLOG) PER UNIT SC SCH (17:30)
[2024-07-03] MEDS ORDERED: INSULIN LISPRO (NovoLOG) PER UNIT SC SCH (21:00)
== END 2024-07-03 20:35 | disposition home or self-care (01) ==
LOC: M ED 11:08 → M ED INP 11:09
PROVIDERS: ADMIT Student in an Organized Health Care Education/Training Program; ATTEND Student in an Organized Health Care Education/Training Program
DX: D64.81 Anemia due to antineoplastic chemotherapy (principal); R53.1 Weakness; D72.825 Bandemia; I44.1 Atrioventricular block, second degree; C83.30 Diffuse large B-cell lymphoma, unspecified site; E11.9 Type 2 diabetes mellitus without complications; Z86.711 Personal history of pulmonary embolism; E78.5 Hyperlipidemia, unspecified; I73.9 Peripheral vascular disease, unspecified; Z79.82 Long term (current) use of aspirin; Z79.4 Long term (current) use of insulin; Z79.899 Other long term (current) drug therapy
CPT/HCPCS: 36415; 36430; 80048; 85025; 86850; 86900; 86901; 86920; 87040; 93005; 99285; G0378; P9016

== ENCOUNTER 2024-07-08 11:58 | Inpatient (IN) | payer MEDICARE, BC ==
[~2024-07-08] VITALS: Ht 180.3 cm; Wt 88.6 kg
[~2024-07-08 11:58] MED LIST changes: +ADVA1AER9 INH; +ASPI81TA26 PO; +INDA1.253 PO; +METF500T13 PO
[2024-07-08 12:53] LABS: BASO % 0.3 % (0.0-1.0); EOS # 0.1 10^3/uL (0.0-0.5); EOS % 2.1 % (0.0-3.0); HEMATOCRIT 29.2 % (42.0-52.0); HEMOGLOBIN 9.7 g/dl (13.5-17.5); LYMPH # 0.5 10^3/uL (1.5-5.0); LYMPH % 9.2 % (24.0-44.0); MEAN CORPUSCULAR HGB CONC 33.2 g/dl (32.0-36.5); MEAN CORPUSCULAR VOLUME 93.3 fl (80.0-96.0); MONO # 0.4 10^3/uL (0.0-0.8); MONO % 6.3 % (2.0-8.0); NEUTROPHILS # 4.6 10^3/uL (1.5-8.5); NEUTROPHILS % 80.7 % (36.0-66.0); PLATELET COUNT, AUTOMATED 120 10^3/uL (150-450); RED BLOOD COUNT 3.13 10^6/uL (4.30-6.10); WHITE BLOOD COUNT 5.7 10^3/uL (4.0-10.0)
[2024-07-08 13:11] LABS: ALBUMIN 2.2 G/DL (3.2-5.2); BILIRUBIN,DIRECT 0.4 MG/DL (<0.4); CREATININE FOR GFR 1.26 MG/DL (0.70-1.30); GLOMERULAR FILTRATION RATE 58.6 (>35); POTASSIUM SERUM 3.7 MMOL/L (3.5-5.1)
[2024-07-08 13:13] LABS: THYROID STIMULATING HORMONE 2.357 uIU/ML (0.55-4.78)
[2024-07-08 13:22] LABS: INR 1.06; PROTHROMBIN TIME 14.1 SECONDS (12.5-14.5)
[2024-07-08] MEDS: NS (Normal Saline) 0.9% 1,000 ML IV ONE ×2 (14:26→17:05)
[2024-07-08 15:20] LABS: IONIZED CALCIUM 3.9 MG/DL (4.5-5.3)
[2024-07-08 15:48] LABS: MAGNESIUM LEVEL 1.9 MG/DL (1.8-2.4)
[2024-07-08] MEDS ORDERED: DOXY-442 PO (19:03)
[2024-07-08] MEDS ORDERED: HOME MED LIST COMPLETE! XX SCH (20:20)
[2024-07-08] MEDS: ACETAMINOPHEN *IV* 1,000 MG in IV 1 EA IV ONE (20:42)
[2024-07-08] MEDS: cefTRIAXone SOD 1 GM in DEXTROSE 5% (D5W) ADV/MINI-BAG 50 ML IV ONE (20:42)
[2024-07-08] MEDS: INSULIN LISPRO (NovoLOG) PER UNIT SC SCH (21:00)
[2024-07-08] MEDS ORDERED: GLUCOSE 4 GM CHEW PO PRN (21:45)
[2024-07-08] MEDS ORDERED: DEXTROSE 50% 50ML SYRINGE IV PRN (21:45)
[2024-07-08] MEDS ORDERED: GLUCAGON INJ 1MG VIAL SC PRN (21:45)
[2024-07-08 22:16] LABS: PHOSPHORUS LEVEL 1.3 MG/DL (2.4-5.1)
[2024-07-08 22:19] LABS: TOTAL 25(OH) VITAMIN D 12.7 NG/ML (20.0-100.0)
[2024-07-08] MEDS: CALCIUM CARBONATE 500 MG CHEW U/D PO ONE (22:31)
[2024-07-08] MEDS: SIMVASTATIN 20 MG TAB PO SCH (22:31)
[2024-07-08] MEDS: NS (Normal Saline) 0.9% 1,000 ML IV SCH (22:31)
[2024-07-08] MEDS: ASPIRIN 81MG ENTERIC TABLET PO SCH (22:31)
[2024-07-08 22:32] LABS: IRON (FE) 15 UG/DL (65-175); PERCENT SATURATION 8.4 % (19.7-50.0); TOTAL IRON BINDING CAPACITY 179 UG/DL (250-425)
[2024-07-08 22:34] LABS: FERRITIN 1256.6 NG/ML (10.5-307.3)
[2024-07-08 22:35] LABS: FOLATE 7.26 NG/ML (>5.4); VITAMIN B12 LEVEL > 2000 PG/ML (211-911)
[2024-07-09 00:13] VITALS: BP 130/64; TEMP 97.5; O2SAT 98
[2024-07-09] MEDS: ACETAMINOPHEN 325 MG TAB PO PRN (00:28)
[2024-07-09 05:01] VITALS: BP 148/57; TEMP 97.5; O2SAT 98
[2024-07-09 06:48] LABS: HEMATOCRIT 23.6 % (42.0-52.0); HEMOGLOBIN 7.7 g/dl (13.5-17.5); MEAN CORPUSCULAR HEMOGLOBIN 31.2 pg (27.0-33.0); MEAN CORPUSCULAR HGB CONC 32.6 g/dl (32.0-36.5); MEAN CORPUSCULAR VOLUME 95.5 fl (80.0-96.0); PLATELET COUNT, AUTOMATED 107 10^3/uL (150-450); RED BLOOD COUNT 2.47 10^6/uL (4.30-6.10); WHITE BLOOD COUNT 4.6 10^3/uL (4.0-10.0)
[2024-07-09 07:04] LABS: ALBUMIN 1.8 G/DL (3.2-5.2); ALKALINE PHOSPHATASE 71 U/L (40-129); ALT/SGPT 14 U/L (7.0-40); AST/SGOT 9 U/L (<34); BILIRUBIN,TOTAL 0.5 MG/DL (0.3-1.2); BLOOD UREA NITROGEN 11 MG/DL (9-23); CALCIUM LEVEL 6.6 MG/DL (8.3-10.6); CARBON DIOXIDE LEVEL 22 MMOL/L (20-31); CHLORIDE LEVEL 113 MMOL/L (98-107); CREATININE FOR GFR 1.16 MG/DL (0.70-1.30); GLOMERULAR FILTRATION RATE > 60.0 (>35); GLUCOSE, FASTING 105 MG/DL (74-106); POTASSIUM SERUM 3.4 MMOL/L (3.5-5.1); SODIUM LEVEL 142 MMOL/L (136-145); TOTAL PROTEIN 4.9 G/DL (5.7-8.2)
[2024-07-09] MEDS: ADVAIR HFA 115/21MCG INHALER INH SCH (07:14)
[2024-07-09] MEDS: INSULIN LISPRO (NovoLOG) PER UNIT SC SCH (08:44)
[2024-07-09] MEDS: POTASSIUM CHLORIDE 10MEQ SR TABLET PO ONE (11:03)
[2024-07-09] MEDS ORDERED: MORPHINE 2 MG/ML 1ML VIAL IV PRN (11:25)
[2024-07-09 12:00] VITALS: BP 145/57; TEMP 97.7; O2SAT 97
[2024-07-09 12:00] LABS: C REACTIVE PROTEIN QUANTITATIV 9.18 MG/DL (<1.0)
[2024-07-09] MEDS: VITAMIN D 1,000 INTERNATIONAL UNITS TABLET PO SCH (12:09)
[2024-07-09] MEDS: PIPERACILLIN/TAZOBACTAM SOD 3.375 GM in DEXTROSE 5% (D5W) ADV/MINI-BAG 50 ML IV SCH (12:10)
[2024-07-09 12:12] LABS: PROCALCITONIN 0.34 ng/ml
[2024-07-09] MEDS: PERCOCET 5MG/325MG TAB PO PRN (12:58)
[2024-07-09] MEDS: HEPARIN SOD (PORCINE) 5000UNITS/ML 1ML VIAL/SYRINGE SQ SCH (14:00)
[2024-07-09] MEDS: POTASSIUM PHOSPHATE INJ 20 MMOL in D5W 250 ML IV ONE (14:17)
[2024-07-09] MEDS: LIDOCAINE W/EPINEPHRINE 1% 20ML VIAL SC ONE (15:10)
[2024-07-09 19:49] VITALS: BP 145/59; TEMP 97.9; O2SAT 97
[2024-07-09] MEDS ORDERED: INDAPAMIDE 1.25MG TABLET PO SCH (21:00)
[2024-07-09] MEDS ORDERED: RIVAROXABAN 20MG TAB (XARELTO) PO SCH (23:00)
[2024-07-10 04:00] VITALS: BP 162/71; TEMP 97.5; O2SAT 98
[2024-07-10 06:02] LABS: HEMOGLOBIN 8.5 g/dl (13.5-17.5); MEAN CORPUSCULAR HEMOGLOBIN 31.1 pg (27.0-33.0); MEAN CORPUSCULAR HGB CONC 32.7 g/dl (32.0-36.5); MEAN CORPUSCULAR VOLUME 95.2 fl (80.0-96.0); PLATELET COUNT, AUTOMATED 130 10^3/uL (150-450); RED BLOOD COUNT 2.73 10^6/uL (4.30-6.10); WHITE BLOOD COUNT 5.2 10^3/uL (4.0-10.0)
[2024-07-10 06:31] LABS: C REACTIVE PROTEIN QUANTITATIV 9.46 MG/DL (<1.0)
[2024-07-10 06:41] LABS: ALBUMIN 1.8 G/DL (3.2-5.2); ALKALINE PHOSPHATASE 79 U/L (40-129); ALT/SGPT 20 U/L (7.0-40); AST/SGOT 17 U/L (<34); BILIRUBIN,TOTAL 0.4 MG/DL (0.3-1.2); BLOOD UREA NITROGEN 10 MG/DL (9-23); CALCIUM LEVEL 6.5 MG/DL (8.3-10.6); CARBON DIOXIDE LEVEL 23 MMOL/L (20-31); CHLORIDE LEVEL 109 MMOL/L (98-107); CREATININE FOR GFR 1.15 MG/DL (0.70-1.30); GLOMERULAR FILTRATION RATE > 60.0 (>35); GLUCOSE, FASTING 129 MG/DL (74-106); PHOSPHORUS LEVEL 1.9 MG/DL (2.4-5.1); POTASSIUM SERUM 3.6 MMOL/L (3.5-5.1); SODIUM LEVEL 142 MMOL/L (136-145)
[2024-07-10] MEDS: VITAMIN D 50,000 UNITS CAPSULE (ERGOCALCIFEROL 1.25MG) PO SCH (09:26)
[2024-07-10 10:27] VITALS: BP 149/66; TEMP 97.9; O2SAT 97
[2024-07-10] MEDS: RIVAROXABAN 20MG TAB (XARELTO) PO SCH (11:53)
[2024-07-10] MEDS: POTASSIUM PHOSPHATE INJ 20 MMOL in D5W 250 ML IV ONE (14:01)
[2024-07-10 20:33] VITALS: BP 125/75; TEMP 97.7; O2SAT 98
[2024-07-11 05:43] LABS: HEMOGLOBIN 8.9 g/dl (13.5-17.5); MEAN CORPUSCULAR HEMOGLOBIN 31.4 pg (27.0-33.0); MEAN CORPUSCULAR VOLUME 95.4 fl (80.0-96.0); PLATELET COUNT, AUTOMATED 145 10^3/uL (150-450); RED BLOOD COUNT 2.83 10^6/uL (4.30-6.10); WHITE BLOOD COUNT 4.5 10^3/uL (4.0-10.0)
[2024-07-11 06:17] LABS: C REACTIVE PROTEIN QUANTITATIV 6.13 MG/DL (<1.0)
[2024-07-11 06:26] LABS: ALBUMIN 1.9 G/DL (3.2-5.2); ALKALINE PHOSPHATASE 96 U/L (40-129); ALT/SGPT 25 U/L (7.0-40); AST/SGOT 22 U/L (<34); BILIRUBIN,TOTAL 0.5 MG/DL (0.3-1.2); BLOOD UREA NITROGEN 9 MG/DL (9-23); CALCIUM LEVEL 6.8 MG/DL (8.3-10.6); CARBON DIOXIDE LEVEL 22 MMOL/L (20-31); CHLORIDE LEVEL 110 MMOL/L (98-107); CREATININE FOR GFR 1.15 MG/DL (0.70-1.30); GLOMERULAR FILTRATION RATE > 60.0 (>35); GLUCOSE, FASTING 131 MG/DL (74-106); PHOSPHORUS LEVEL 2.5 MG/DL (2.4-5.1); POTASSIUM SERUM 3.6 MMOL/L (3.5-5.1); SODIUM LEVEL 142 MMOL/L (136-145); TOTAL PROTEIN 5.3 G/DL (5.7-8.2)
[2024-07-11] MEDS ORDERED: AMOX875T2 PO (09:31)
[2024-07-11] MEDS ORDERED: DOXY-440 PO (09:31)
[2024-07-11] MEDS ORDERED: ERGO500029 PO (12:54)
== END 2024-07-11 12:30 | disposition home health service (06) | DRG 603 ==
LOC: EDBD 11:58 → M ED 11:58 → M ED INP 21:40 → M MS5PR 07-09 00:08
PROVIDERS: ADMIT Family Medicine; ATTEND Internal Medicine
PROC: 0Y910ZZ Drainage of Left Buttock, Open Approach (ICD-10-PCS; principal; 2024-07-09)
DX: L02.31 Cutaneous abscess of buttock (principal); C83.30 Diffuse large B-cell lymphoma, unspecified site; I10 Essential (primary) hypertension; E78.5 Hyperlipidemia, unspecified; E83.39 Other disorders of phosphorus metabolism; E87.6 Hypokalemia; I95.1 Orthostatic hypotension; D64.9 Anemia, unspecified; I73.9 Peripheral vascular disease, unspecified; D69.6 Thrombocytopenia, unspecified; J44.9 Chronic obstructive pulmonary disease, unspecified; E11.51 Type 2 diabetes mellitus with diabetic peripheral angiopathy without gangrene; Z86.711 Personal history of pulmonary embolism; Z92.3 Personal history of irradiation; Z90.79 Acquired absence of other genital organ(s); Z95.828 Presence of other vascular implants and grafts; Z98.41 Cataract extraction status, right eye; Z98.42 Cataract extraction status, left eye; Z87.891 Personal history of nicotine dependence; Z79.82 Long term (current) use of aspirin; Z79.2 Long term (current) use of antibiotics; Z79.84 Long term (current) use of oral hypoglycemic drugs; Z79.899 Other long term (current) drug therapy; Z85.46 Personal history of malignant neoplasm of prostate; Z86.73 Personal history of transient ischemic attack (TIA), and cerebral infarction without residual deficits

== ENCOUNTER → 2024-07-14 | Outpatient (CLI) | payer MEDICARE, BC ==
[~2024-07-14] VITALS: Ht 182.9 cm; Wt 67.2 kg
[~2024-07-14] MED LIST changes: +AMOX875T2 PO; +DOXY-440 PO; +DOXY-442 PO; +ERGO500029 PO
[2024-07-14 08:30] VITALS: BP 130/81; O2SAT 96
== END ==
LOC: M PAL 08:28
PROVIDERS: ATTEND Physician Assistant
DX: Z51.5 Encounter for palliative care (principal); C83.30 Diffuse large B-cell lymphoma, unspecified site; Z79.899 Other long term (current) drug therapy; I10 Essential (primary) hypertension; G45.9 Transient cerebral ischemic attack, unspecified; E78.5 Hyperlipidemia, unspecified

== ENCOUNTER 2024-08-21 16:57 | Emergency (ER) | payer MEDICARE, BC ==
[~2024-08-21] VITALS: Ht 180.3 cm; Wt 85.0 kg
[2024-08-21 17:46] LABS: KETONE, URINE AUTO RFX NEGATIVE (NEGATIVE); LEUKOCYTE ESTERASE UR AUTO RFX NEGATIVE (NEGATIVE); NITRITE, URINE AUTO RFX NEGATIVE (NEGATIVE); RBC, URINE AUTO RFX 0 /HPF (0-3); SQUAM EPITHELIAL CELL UR AURFX 0 /HPF (0-6); WBC, URINE AUTO RFX 1 /HPF (0-3)
[2024-08-21 19:30] LABS: VENOUS BASE EXCESS -2.3 (-2.0-2.0); VENOUS HCO3 23.5 MMOL/L (23.0-27.0); VENOUS O2 SATURATION 52.9 % (60.0-80.0); VENOUS PARTIAL PRESSURE CO2 44.2 mmHg (38.0-50.0); VENOUS PARTIAL PRESSURE O2 30.1 mmHg (30.0-50.0); VENOUS PH 7.343 UNITS (7.330-7.430); VENOUS STANDARD HCO3 21.7 MMOL/L; VENOUS TOTAL CO2 24.8 MMOL/L (24.0-28.0)
[2024-08-21 19:34] LABS: HEMATOCRIT 34.8 % (42.0-52.0); HEMOGLOBIN 11.1 g/dl (13.5-17.5); MEAN CORPUSCULAR HEMOGLOBIN 30.5 pg (27.0-33.0); MEAN CORPUSCULAR HGB CONC 31.9 g/dl (32.0-36.5); MEAN CORPUSCULAR VOLUME 95.6 fl (80.0-96.0); PLATELET COUNT, AUTOMATED 187 10^3/uL (150-450); RED BLOOD COUNT 3.64 10^6/uL (4.30-6.10); WHITE BLOOD COUNT 4.8 10^3/uL (4.0-10.0)
[2024-08-21 20:02] LABS: ANISOCYTOSIS 1+; BASOPHILS 1 % (0-1); EOSINOPHILS 1 % (0-3); LYMPHOCYTES 26 % (16-44); MONOCYTES 7 % (0-5); NEUTROPHILS 60 % (28-66); PLATELET ESTIMATE NORMAL (NORMAL)
[2024-08-21 20:14] LABS: LIPASE 22 U/L (12-53)
[2024-08-21 20:17] LABS: ALBUMIN 2.8 G/DL (3.2-5.2); ALKALINE PHOSPHATASE 99 U/L (40-129); ALT/SGPT 19 U/L (7.0-40); AST/SGOT 13 U/L (<34); BILIRUBIN,DIRECT < 0.1 MG/DL (<0.4); BILIRUBIN,TOTAL 0.4 MG/DL (0.3-1.2); BLOOD UREA NITROGEN 33 MG/DL (9-23); CALCIUM LEVEL 8.6 MG/DL (8.3-10.6); CARBON DIOXIDE LEVEL 25 MMOL/L (20-31); CHLORIDE LEVEL 106 MMOL/L (98-107); CREATININE FOR GFR 1.29 MG/DL (0.70-1.30); GLOMERULAR FILTRATION RATE 56.1 (>35); GLUCOSE, FASTING 268 MG/DL (74-106); POTASSIUM SERUM 4.2 MMOL/L (3.5-5.1); SODIUM LEVEL 139 MMOL/L (136-145); TOTAL PROTEIN 6.3 G/DL (5.7-8.2)
[2024-08-21 20:26] LABS: HEMOGLOBIN A1c 7.4 % (4.0-6.0)
[2024-08-21 21:53] VITALS: BP 145/66; TEMP 97.1; O2SAT 100
[2024-08-21 22:12] LABS: OSMOLALITY SERUM 311 MOSM/KG (280-301)
== END 2024-08-22 00:06 | disposition home or self-care (01) ==
LOC: M ED 16:57
DX: E11.65 Type 2 diabetes mellitus with hyperglycemia (principal); C83.30 Diffuse large B-cell lymphoma, unspecified site; I10 Essential (primary) hypertension; E78.5 Hyperlipidemia, unspecified; Z85.46 Personal history of malignant neoplasm of prostate; Z86.73 Personal history of transient ischemic attack (TIA), and cerebral infarction without residual deficits; Z79.01 Long term (current) use of anticoagulants; Z79.82 Long term (current) use of aspirin; Z79.899 Other long term (current) drug therapy

== ENCOUNTER → 2024-08-21 | Outpatient (CLI) | payer MEDICARE, BC ==
[2024-08-21 15:26] LABS: HEMATOCRIT 35.8 % (42.0-52.0); HEMOGLOBIN 11.5 g/dl (13.5-17.5); MEAN CORPUSCULAR HEMOGLOBIN 30.9 pg (27.0-33.0); MEAN CORPUSCULAR HGB CONC 32.1 g/dl (32.0-36.5); MEAN CORPUSCULAR VOLUME 96.2 fl (80.0-96.0); PLATELET COUNT, AUTOMATED 202 10^3/uL (150-450); RED BLOOD COUNT 3.72 10^6/uL (4.30-6.10); WHITE BLOOD COUNT 4.7 10^3/uL (4.0-10.0)
[2024-08-21 15:37] LABS: URIC ACID 9.8 MG/DL (3.7-9.2)
[2024-08-21 15:39] LABS: LDH LACTATE DEHYDROGENASE 140 U/L (120-246)
[2024-08-21 15:43] LABS: ANISOCYTOSIS 1+; ATYPICAL LYMPH 2 % (0-5); BASOPHILS 1 % (0-1); DOHLE BODIES 1+; EOSINOPHILS 4 % (0-3); LYMPHOCYTES 20 % (16-44); MONOCYTES 6 % (0-5); NEUTROPHILS 51 % (28-66); PLATELET ESTIMATE NORMAL (NORMAL)
[2024-08-21 15:50] LABS: ALBUMIN 2.8 G/DL (3.2-5.2); ALKALINE PHOSPHATASE 99 U/L (40-129); ALT/SGPT 18 U/L (7.0-40); AST/SGOT < 8 U/L (<34); BILIRUBIN,TOTAL 0.4 MG/DL (0.3-1.2); BLOOD UREA NITROGEN 33 MG/DL (9-23); CALCIUM LEVEL 8.8 MG/DL (8.3-10.6); CARBON DIOXIDE LEVEL 27 MMOL/L (20-31); CHLORIDE LEVEL 101 MMOL/L (98-107); CREATININE FOR GFR 1.37 MG/DL (0.70-1.30); GLOMERULAR FILTRATION RATE 52.2 (>35); GLUCOSE, FASTING 418 MG/DL (74-106); PHOSPHORUS LEVEL 2.6 MG/DL (2.4-5.1); POTASSIUM SERUM 3.9 MMOL/L (3.5-5.1); SODIUM LEVEL 137 MMOL/L (136-145); TOTAL PROTEIN 6.2 G/DL (5.7-8.2)
== END ==
LOC: M LAB 14:43
PROVIDERS: ATTEND Physician Assistant
DX: C83.30 Diffuse large B-cell lymphoma, unspecified site (principal)

== ENCOUNTER → 2024-12-03 | Outpatient (CLI) | payer MEDICARE, BC ==
[~2024-12-03] MED LIST changes: +LIDO1ADH93 TOP; -LIDO5DIS41 TOP
[2024-12-03 07:56] LABS: PROSTATIC SPECIFIC AG MONITOR 5.81 NG/ML (< 4.00)
[2024-12-03 08:00] LABS: TESTOSTERONE 321.0 NG/DL (241-827)
== END ==
LOC: M LAB 06:35
PROVIDERS: ATTEND Urology
DX: C61 Malignant neoplasm of prostate (principal)

== ENCOUNTER 2025-01-05 12:56 | Emergency (ER) | payer MEDICARE, BC ==
[~2025-01-05] VITALS: Ht 182.9 cm; Wt 83.5 kg
[2025-01-05 12:58] VITALS: TEMP 97.5
[2025-01-05] MEDS ORDERED: FARX1TAB3 (13:52)
[2025-01-05] MEDS ORDERED: SPIR-10 (13:52)
[2025-01-05] MEDS ORDERED: ICOS1CAP (13:52)
[2025-01-05] MEDS ORDERED: AMLO1TAB25 (13:52)
[2025-01-05] MEDS ORDERED: ATEN50TA2 (13:52)
[2025-01-05] MEDS ORDERED: INDA1.253 (13:52)
[2025-01-05] MEDS ORDERED: LOSA100T46 (13:52)
[2025-01-05] MEDS: TETANUS/DIPHTH/ACEL. PERTUSSIS 0.5 ML SYR IM.IMMUN ONE (15:41)
[2025-01-05 15:55] VITALS: BP 162/70; O2SAT 97
== END 2025-01-05 15:56 | disposition home or self-care (01) ==
LOC: M ED 12:56
DX: S81.811A Laceration without foreign body, right lower leg, initial encounter (principal); W22.8XXA Striking against or struck by other objects, initial encounter; Y92.9 Unspecified place or not applicable; Y93.9 Activity, unspecified; Y99.9 Unspecified external cause status; I10 Essential (primary) hypertension; E78.5 Hyperlipidemia, unspecified; Z86.73 Personal history of transient ischemic attack (TIA), and cerebral infarction without residual deficits; Z79.01 Long term (current) use of anticoagulants; Z79.82 Long term (current) use of aspirin; Z79.899 Other long term (current) drug therapy

== ENCOUNTER → 2025-02-17 | Outpatient (CLI) | payer MEDICARE, BC ==
[~2025-02-17] MED LIST changes: +AMLO1TAB25; +ATEN50TA2; +FARX1TAB3; +ICOS1CAP; +INDA1.253; +LOSA100T46; +SPIR-10
== END ==
LOC: M RAD 10:29
PROVIDERS: ATTEND Internal Medicine
DX: M54.50 Low back pain, unspecified (principal); M47.816 Spondylosis without myelopathy or radiculopathy, lumbar region

== ENCOUNTER → 2025-03-03 | Outpatient (REF) | payer MEDICARE, OTHER | LOC: M LAB REF 14:34 | PROVIDERS: ATTEND Nurse Practitioner Family | DX: L02.31 Cutaneous abscess of buttock (principal) ==